=== PATIENT | male | born 1995 | race Caucasian/White ===

== ENCOUNTER 2019-07-27 09:44 | Emergency (ER) | payer OTHER ==
[~2019-07-27] VITALS: Ht 170.2 cm; Wt 70.0 kg
[2019-07-27 09:51] VITALS: BP 116/92
--- NOTE | 2019-07-27 09:55 | PHYS DOC ---
Past History Past Medical History: No Pertinent History General Adult EDM: Chief Complaint: SKIN RASH/ABSCESS HPI: HPI: Healthy 23M p/w urticarial rash x1d. Affects extremities x4 and torso, with sparing of face, palms, soles, mouth. Rash is pruritic. Similar rash in past, not as severe, typically amenable to benadryl. No new environmental exposures, detergents, etc. No N/V/D, SOA. Review of Systems: Review of Systems: Gen: No fever, chills. Eyes: No blurred vision, diplopia. ENT: No nasal congestion, sore throat. CV: No CP, palpitations. Resp. No SOB, cough. GI: No abd pain, N/V. Neuro: No PAYNE, dizziness, weakness. MSK: No myalgia, arthralgia. Skin: Reports rash. Heart Score: Risk Factors: Risk Factors: DM, Current or recent (<one month) smoker, HTN, HLP, family history of CAD, obesity. Risk Scores: Score 0 - 3: 2.5% MACE over next 6 weeks - Discharge Home Score 4 - 6: 20.3% MACE over next 6 weeks - Admit for Clinical Observation Score 7 - 10: 72.7% MACE over next 6 weeks - Early Invasive Strategies Physical Exam: PE: Gen: NAD. Well nourished. Head: NC/AT. Eyes: No scleral icterus. No conjunctival injection. ENT: MMM. Posterior OP clear. No intraoral lesions. Neck: Supple. NT. CV: RRR. Peripheral pulses intact. Resp: CTAB. Abd: Soft. NT. ND. MSK: No peripheral cyanosis. No edema. Neuro: Awake and alert. Skin. Warm. Dry. Diffuse urticarial rash extremities x4, torso, with sparing of the face, palms, soles, mouth. Psych: Appropriate mood & affect. EKG: EKG: [] Radiology/Procedures: Radiology/Procedures: [] Course & Med Decision Making: Course & Med Decision Making Pertinent Labs and Imaging studies reviewed. (See chart for details) In summary, 23M p/w pruritic urticarial rash onset yesterday, initial improvement, now worsened despite benadryl. HDS. Sparing of face, palms, soles, mouth noted. Denies new detergents/clothing. Will Tx symptomatically with pred/pepcid, continue benadryl. Outpatient allergy FU. Return precautions given. Darlene Disclaimer: Darlene Disclaimer: This electronic medical record was generated, in whole or in part, using a voice recognition dictation system. Departure Departure: Impression: Primary Impression: Urticarial rash Disposition: HOME/RESIDENCE PRIOR TO ADM Condition: STABLE Referrals: SAVANNAH LEWIS APRN (PCP) Patient Instructions: Allergy Tests, Rash, [id number] Additional Instructions: Take all of the prescribed steroid. Continue benadryl 25 mg every 6 hours as needed. Follow up with an filter screen cleaner if you have continued symptoms. Scripts Famotidine (PEPCID) 20 Mg Tablet 2 TAB PO BID for allergic reaction, #30 TAB 0 Refills Prov: EBONY RANDOLPH DO 07/27/19 Prednisone (PREDNISONE) 20 Mg Tablet 3 TAB PO DAILY for urticaria, #15 TAB Prov: EBONY RANDOLPH DO 07/27/19 Justification of Admission: Justification of Admission: Justification of Admission Dx: N/A EBONY RANDOLPH DO Jul 27, 2019 09:55
[2019-07-27] MEDS ORDERED: FAMO-63 PO (10:10)
[2019-07-27] MEDS ORDERED: PRED20TA PO (10:10)
[2019-07-27] MEDS ORDERED: FAMOTIDINE 20 MG TABLET PO ONE (10:15)
[2019-07-27] MEDS ORDERED: predniSONE 20 MG TABLET PO ONE (10:15)
== END 2019-07-27 10:15 | disposition home or self-care (01) ==
LOC: ER 09:44
DX: L50.9 Urticaria, unspecified (principal)
CPT/HCPCS: 99283; J7512